=== PATIENT | male | born 1975 | race Caucasian/White ===

== ENCOUNTER 2016-08-26 10:45 | Emergency (ER) | payer MEDICAID, OTHER ==
[2016-08-26 10:52] VITALS: BP 146/77
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
[2016-08-26 12:37] LABS: ALT 14 U/L (7-52); Albumin 4.1 g/dL (3.2-5.2); Alkaline Phosphatase 59 U/L (34-104); Amylase 61 U/L (29-103); BUN/Creatinine Ratio 12.6 (8-20); Blood Urea Nitrogen 14 mg/dL (6-24); C Reactive Protein < 1.00 mg/L (< 5.00); CO2 Carbon Dioxide 23 mmol/L (22-32); Calcium 9.3 mg/dL (8.6-10.3); Chloride 103 mmol/L (101-111); EGFR Non-African American 72.3 (>60); Globulin 2.9 g/dL (2-4); Glucose 95 mg/dL (70-100); Lipase 55 U/L (11.0-82.0); Sodium 134 mmol/L (133-145)
[2016-08-26 12:50] LABS: AST 19 U/L (13-39); Anion Gap 8 mmol/L (2-11); Potassium 4.5 mmol/L (3.5-5.0)
[2016-08-26 13:40] LABS: Hematocrit 46 % (42-52); Hemoglobin 15.4 g/dl (14.0-18.0); Mean Corpuscular HGB Conc 33 g/dl (31-36); Mean Corpuscular Hemoglobin 30 pg (27-31); Mean Corpuscular Volume 90 fL (80-94); Mean Platelet Volume 8 um3 (7.4-10.4); Red Blood Count 5.15 10^6/ul (4.0-5.4); Red Cell Distribution Width 14 % (10.5-15); White Blood Count 7.7 10^3/ul (3.5-10.8)
--- NOTE | 2016-08-29 07:23 | PN ---
Progress Note - Progress Note Note: Patient stool culture did not grow any organisms. No further action needed.
== END 2016-08-26 14:12 | disposition home or self-care (01) ==
LOC: ED 10:45
DX: K52.9 Noninfective gastroenteritis and colitis, unspecified (principal); Z88.0 Allergy status to penicillin
CPT/HCPCS: 36415; 80053; 82150; 83605; 83630; 83690; 83735; 85025; 86140; 87045; 87046; 87077; 87899; 99281

== ENCOUNTER 2017-01-05 12:32 | Emergency (ER) | payer OTHER ==
[2017-01-05 14:43] VITALS: BP 117/81
--- NOTE | 2017-01-05 14:46 | RAD ---
HISTORY: Tender over bilateral shins, crush injury COMPARISONS: None VIEWS: 4, of the right foreleg and of the left foreleg FINDINGS: Right: BONE DENSITY: Normal. BONES: There is no displaced fracture. There is no appreciable erosion or periosteal reaction. JOINTS: There is no arthropathy. ALIGNMENT: There is no dislocation. The alignment is anatomic. SOFT TISSUES: Unremarkable. Left: BONE DENSITY: Normal. BONES: There is no displaced fracture. There is no appreciable erosion or periosteal reaction. JOINTS: There is no arthropathy. ALIGNMENT: There is no dislocation. The alignment is anatomic. SOFT TISSUES: Unremarkable. OTHER FINDINGS: None. IMPRESSION: NO ACUTE OSSEOUS INJURY BILATERALLY. IF SYMPTOMS PERSIST, RECOMMEND REPEAT IMAGING.
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
== END 2017-01-05 15:31 | disposition home or self-care (01) ==
LOC: UCEAST 12:32
DX: S80.12XA Contusion of left lower leg, initial encounter (principal); S80.11XA Contusion of right lower leg, initial encounter; S80.812A Abrasion, left lower leg, initial encounter; S80.811A Abrasion, right lower leg, initial encounter; W22.8XXA Striking against or struck by other objects, initial encounter; Y93.H9 Activity, other involving exterior property and land maintenance, building and construction; Y92.9 Unspecified place or not applicable; R03.0 Elevated blood-pressure reading, without diagnosis of hypertension; R73.03 Prediabetes; Z90.49 Acquired absence of other specified parts of digestive tract; Z88.0 Allergy status to penicillin; Z88.8 Allergy status to other drugs, medicaments and biological substances; F17.210 Nicotine dependence, cigarettes, uncomplicated
CPT/HCPCS: 99213; G0463

== ENCOUNTER 2017-09-09 19:07 | Emergency (ER) | payer SELFPAY ==
[2017-09-09] MEDS ORDERED: Ondansetron INJ* 2 MG/ML VIAL IV ONE (19:15)
[2017-09-09] MEDS ORDERED: Morphine VIAL* 4 MG/ML VIAL (1 ml vial) IV ONE (19:15)
[2017-09-09 20:08] LABS: ABS Basophils 0 10^3/ul (0-0.2); ABS Eosinophils 0 10^3/ul (0-0.6); ABS Lymphocytes 1.8 10^3/ul (1.0-4.8); ABS Monocytes 0.8 10^3/ul (0-0.8); ABS Neutrophils 8.7 10^3/ul (1.5-7.7); ABS Nucleated RBC 0 10^3/ul; Eosinophil % 0.2 % (0-6); Hematocrit 49 % (42-52); Hemoglobin 16.4 g/dl (14.0-18.0); Lymphocyte % 16.1 % (25-47); Mean Corpuscular HGB Conc 34 g/dl (31-36); Mean Corpuscular Hemoglobin 30 pg (27-31); Mean Corpuscular Volume 90 fL (80-94); Mean Platelet Volume 7.6 um3 (7.4-10.4); Nucleated Red Blood Cells % 0.1; Platelet Count 304 10^3/ul (150-450); Red Blood Count 5.39 10^6/ul (4.0-5.4); Red Cell Distribution Width 14 % (10.5-15); White Blood Count 11.4 10^3/ul (3.5-10.8)
[2017-09-09 20:27] LABS: EGFR Non-African American 57.9 (>60)
--- NOTE | 2017-09-09 21:10 | RAD ---
INDICATION: RIGHT flank pain. History of pancreatitis. Post appendectomy, cholecystectomy, hernia repair. COMPARISON: April 27, 2014 CT TECHNIQUE: Multidetector CT images were obtained from the lung bases to the ischial tuberosities. Evaluation of the viscera is limited without IV contrast. Multiplanar reformation. REPORT: Unremarkable visualized inferior thorax. Epigastric surgical clips. Post cholecystectomy. Negative for biliary dilatation. No CT abnormality of the unenhanced liver. Unremarkable unenhanced pancreas. Negative for pancreatic duct dilatation. Unremarkable spleen. Probable previous Yessy fundoplication. No acute CT abnormality of the upper GI or small bowel. Post appendectomy. Mild diverticulosis of the sigmoid colon without findings of acute inflammation. Negative for ascites, free air. Small fat-containing probable indirect LEFT inguinal hernia without inflammatory change. Normal adrenal glands. Negative for urolithiasis or hydronephrosis. No focal renal lesions or abnormality of the nondilated ureters or largely decompressed urinary bladder. Symmetric seminal vesicles. Negative for lymphadenopathy. Normal diameter abdominal aorta and iliac arteries. Physiologic distention of the IVC. Negative for suspicious osseous lesions. IMPRESSION: 1. Probable postsurgical change of Yessy fundoplication. No recurrent hiatal hernia evident. 2. Post appendectomy. 3. Mild colonic diverticulosis at the sigmoid colon without evidence for acute diverticulitis. 4. Negative for urolithiasis or hydronephrosis.
[2017-09-09] MEDS ORDERED: Al Hydrox/Mg Hydrox/Simet LIQ* 30 ML UDC PO ONE (21:22)
[2017-09-09] MEDS ORDERED: Hyoscyamine TAB* 0.125 MG PO ONE (21:22)
[2017-09-09] MEDS ORDERED: Famotidine TAB* 20 MG PO ONE (21:22)
[2017-09-09] MEDS ORDERED: Lidocaine 2% VISCOUS* 15 ML UDC PO ONE (21:31)
[2017-09-09] MEDS ORDERED: Lidocaine 2% VISCOUS* 15 ML UDC ONE (21:32)
[2017-09-09 21:40] VITALS: BP 141/92
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
== END 2017-09-09 21:40 | disposition home or self-care (01) ==
LOC: ED 19:07
DX: K29.70 Gastritis, unspecified, without bleeding (principal); R10.9 Unspecified abdominal pain; G89.29 Other chronic pain
CPT/HCPCS: 36415; 74176; 80053; 80320; 83605; 83690; 85025; 86140; 96374; 99283; A9270-GY; G0480; J2270; J2405

== ENCOUNTER 2017-10-10 07:48 | Emergency (ER) | payer OTHER ==
[2017-10-10] MEDS ORDERED: Ondansetron INJ* 2 MG/ML VIAL IV ONE (09:06)
[2017-10-10] MEDS ORDERED: Morphine VIAL* 4 MG/ML VIAL (1 ml vial) IV ONE (09:06)
[2017-10-10 09:56] LABS: ABS Basophils 0 10^3/ul (0-0.2); ABS Eosinophils 0 10^3/ul (0-0.6); ABS Monocytes 0.5 10^3/ul (0-0.8); ABS Neutrophils 5.9 10^3/ul (1.5-7.7); ABS Nucleated RBC 0 10^3/ul; Eosinophil % 0.2 % (0-6); Hematocrit 48 % (42-52); Lymphocyte % 13.1 % (25-47); Mean Corpuscular HGB Conc 34 g/dl (31-36); Mean Corpuscular Hemoglobin 31 pg (27-31); Mean Corpuscular Volume 91 fL (80-94); Mean Platelet Volume 7.9 um3 (7.4-10.4); Nucleated Red Blood Cells % 0; Platelet Count 304 10^3/ul (150-450); Red Blood Count 5.24 10^6/ul (4.0-5.4); Red Cell Distribution Width 15 % (10.5-15); White Blood Count 7.4 10^3/ul (3.5-10.8)
[2017-10-10 10:12] LABS: INR 0.92 (0.77-1.02)
[2017-10-10 10:20] LABS: EGFR Non-African American 78.5 (>60)
[2017-10-10] MEDS ORDERED: Iodixanol* (CONTRAST) 320 MG/ML 100 ML SDV IV ONE (10:24)
[2017-10-10] MEDS ORDERED: HYDROmorphone INJ* 2 MG/ML CARPUJECT SYRINGE IV SLOW PU ONE (11:22)
[2017-10-10] MEDS ORDERED: Metoclopramide IV* 5 MG/ML 2 ML VIAL IV ONE (11:23)
[2017-10-10 13:49] VITALS: BP 000/00
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
== END 2017-10-10 13:46 | disposition left against medical advice (07) ==
LOC: ED 07:48
DX: R10.9 Unspecified abdominal pain (principal); Z53.21 Procedure and treatment not carried out due to patient leaving prior to being seen by health care provider; F17.200 Nicotine dependence, unspecified, uncomplicated; Z88.0 Allergy status to penicillin; Z88.8 Allergy status to other drugs, medicaments and biological substances
CPT/HCPCS: 36415; 80053; 83605; 83690; 84484; 85025; 85610; 85730; 93005; 96374; 96375; 99283; J1170; J2270; J2765

== ENCOUNTER 2018-04-23 07:05 | Emergency (ER) | payer OTHER ==
[2018-04-23] MEDS ORDERED: LORazepam INJ* 2 MG/ML 1 ML VIAL ONE (07:18)
[2018-04-23] MEDS ORDERED: NS 0.9% 1000 ML* 1,000 ML IV ONE (07:20)
[2018-04-23] MEDS ORDERED: LORazepam INJ* 2 MG/ML 1 ML VIAL IV PUSH ONE (07:21)
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
[2018-04-23 07:30] LABS: ABS Basophils 0 10^3/ul (0-0.2); ABS Eosinophils 0 10^3/ul (0-0.6); ABS Lymphocytes 0.6 10^3/ul (1.0-4.8); ABS Monocytes 0.3 10^3/ul (0-0.8); ABS Neutrophils 8.3 10^3/ul (1.5-7.7); ABS Nucleated RBC 0 10^3/ul; Eosinophil % 0 %; Hematocrit 51 % (42-52); Hemoglobin 17.2 g/dl (14.0-18.0); Lymphocyte % 6.9 %; Mean Corpuscular HGB Conc 33 g/dl (31-36); Mean Corpuscular Hemoglobin 30 pg (27-31); Mean Corpuscular Volume 91 fL (80-94); Mean Platelet Volume 7.6 fL (7.4-10.4); Nucleated Red Blood Cells % 0; Platelet Count 362 10^3/ul (150-450); Red Blood Count 5.67 10^6/ul (4.00-5.40); Red Cell Distribution Width 15 % (10.5-15); White Blood Count 9.2 10^3/ul (3.5-10.8)
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
[2018-04-23 07:48] LABS: EGFR Non-African American 54.8 (>60)
[2018-04-23] MEDS ORDERED: Ziprasidone IM INJ* 20 MG/ML VIAL IM ONE (08:08)
[2018-04-23] MEDS ORDERED: Iodixanol* (CONTRAST) 320 MG/ML 100 ML SDV IV ONE (08:39)
[2018-04-23] MEDS ORDERED: hydrOXYzine HCL TAB* 50 MG PO ONE (11:38)
[2018-04-23 11:58] VITALS: BP 133/79
== END 2018-04-23 11:57 | disposition home or self-care (01) ==
LOC: ED 07:05
DX: R10.9 Unspecified abdominal pain (principal); G89.29 Other chronic pain; R07.9 Chest pain, unspecified; R11.0 Nausea; Z88.0 Allergy status to penicillin; Z79.01 Long term (current) use of anticoagulants; Z86.718 Personal history of other venous thrombosis and embolism; R06.02 Shortness of breath; F17.210 Nicotine dependence, cigarettes, uncomplicated
CPT/HCPCS: 36415; 74177; 80053; 82150; 82550; 83605; 83690; 83735; 83880; 84484; 85025; 86140; 93005; 96372; 96374; 96376; 99282; J2060; Q9967

== ENCOUNTER → 2019-07-02 14:18 | Day surgery (SDC) | payer OTHER ==
--- NOTE | 2019-07-02 09:17 | HP ---
PREOPERATIVE HISTORY AND PHYSICAL: DATE OF ADMISSION/SURGERY: 07/02/19 DATE OF OFFICE VISIT: 07/01/19 ATTENDING SURGEON: Dr. Liu Combs.* (DICTATED BY ELENA POE) PROCEDURE: Right hand fourth and fifth carpometacarpal fracture dislocations, closed reduction versus open reduction and percutaneous pinning. CHIEF COMPLAINT: Right hand. HISTORY OF PRESENT ILLNESS: Mr. Ridley is a 44-year-old male with a history of right hand injury on 06/05/19 when he fell downstairs and jammed his right hand. He had x-rays that showed fracture of the base of the fourth and fifth metacarpals and CT scan showed fourth and fifth metacarpal fracture dislocations. He has failed conservative measures and therefore agreed to undergo a right hand fourth and fifth carpometacarpal fracture dislocation closed reduction versus open reduction and percutaneous pinning with Dr. Combs on 07/02/19. PAST MEDICAL HISTORY: NV, osteoarthritis, GERD, kidney disease, anxiety, history of drug abuse and alcohol addiction, chronic pancreatitis, history of MRSA, and history of DVT/PE approximately 8 years ago; he had his first blood clot with PE after an injury to his right arm and his second one was after a left leg injury. PAST SURGICAL HISTORY: Hiatal hernia repair, appendectomy, cholecystectomy. CURRENT MEDICATIONS: 1. Suboxone. 2. Lorazepam 1 mg as needed. ALLERGIES: PROZAC, PENICILLIN, COMPAZINE, REGLAN, EFFEXOR, REMERON, and RISPERDAL. FAMILY HISTORY: Positive for diabetes, heart disease, hypertension, stroke, and pancreatic cancer. Denies family history of DVT or PE. SOCIAL HISTORY: He is employed in construction, a current smoker of approximately a pack per day. He also smokes marijuana. He denies alcohol use over the past 4 years. REVIEW OF SYSTEMS: A 14-point review of systems was reviewed with the patient and positive for the current complaint, otherwise negative. Positive for a history of DVT and PE. Denies fever, chills, chest pain, shortness of breath, or history of bleeding disorder. Denies hepatitis C or HIV. PHYSICAL EXAMINATION GENERAL: A 44-year-old, well-developed, well-nourished male in no acute distress. VITAL SIGNS: Height 66.5, weight 155, pulse 74, blood pressure 136/78, respiratory rate 12, temperature 97.7, BMI 24.6. HEENT: Normocephalic, atraumatic. PERRL. Throat clear. NECK: Supple. PULMONARY: Lungs are clear to auscultation bilaterally. No wheezing, rhonchi, or rales. CARDIO: Regular rate and rhythm. S1 and S2. No murmurs, gallops, or rubs. No edema. ABDOMEN: Positive bowel sounds. Soft, nontender. NEURO: Alert and oriented x3. Cranial nerves grossly intact. MUSCULOSKELETAL: Mild swelling of the upper extremity. He has a splint that is intact. He is able to flex and extend his DIPs of all of his joints. Sensation intact to the light touch distally. Brisk cap refill. DIAGNOSTIC STUDIES: X-rays and CT revealed fracture dislocations of the fourth and fifth metacarpal bases. ASSESSMENT: Right fourth and fifth metacarpal fracture dislocation. PLAN: The patient is scheduled to undergo a right hand fourth and fifth carpometacarpal fracture dislocation closed reduction versus open reduction and percutaneous pinning with Dr. Combs on 07/02/19. He has been cleared by Cardiology. Dr. Combs has discussed postoperative pain management with the doctor who prescribes the Suboxone. Follow up in 7 to 10 days postop. See additional note dictated by Dr. Combs in preparation for this patient's operation tomorrow. ELENA POE [id number]/[facility] #: [id number] [facility]
[~2019-07-02 14:18] MED LIST: Buffered Lidocaine 1% SYRIN* 1 ML/SYRINGE INTRADERM ONE; Clindamycin 900 MG/D5W BAG(*) 900 MG/50 ML BAG IVPB ONE; Dexamethasone TAB* 4 MG ONE; Dexamethasone TAB* 4 MG PO ONE; DiMENhydriNATE IV* 50 MG/ML VIAL IV PUSH PRN; Famotidine IV* 10 MG/ML 2 ML (20 mg) IV ONE; Famotidine IV* 10 MG/ML 2 ML (20 mg) ONE; Lactated Ringers 1000 ML Bag* 1,000 ML IV SCH; Naloxone* 0.4 MG/ML 1 ML VIAL IV PRN; Ondansetron ODT TAB* 4 MG ONE; Ondansetron ODT TAB* 4 MG PO ONE
[2019-07-02 15:20] VITALS: BP 108/81
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
--- NOTE | 2019-07-02 17:02 | PN ---
Progress Note - Progress Note Date of Service: 07/02/19 SOAP: Subjective: [] Objective: [] Assessment: [] Plan: []
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
== END | disposition home or self-care (01) ==
LOC: OR 14:18
PROVIDERS: ATTEND Orthopaedic Surgery
DX: S62.314A Displaced fracture of base of fourth metacarpal bone, right hand, initial encounter for closed fracture (principal); S62.316A Displaced fracture of base of fifth metacarpal bone, right hand, initial encounter for closed fracture; W10.9XXA Fall (on) (from) unspecified stairs and steps, initial encounter; Y92.9 Unspecified place or not applicable; Z53.8 Procedure and treatment not carried out for other reasons; F19.21 Other psychoactive substance dependence, in remission; F10.11 Alcohol abuse, in remission; I25.2 Old myocardial infarction; M19.90 Unspecified osteoarthritis, unspecified site; F41.9 Anxiety disorder, unspecified; F17.210 Nicotine dependence, cigarettes, uncomplicated
CPT/HCPCS: A9270-GY; J8540

== ENCOUNTER 2022-05-30 23:55 | Inpatient (IN) ==
[2022-05-31] MEDS ORDERED: Lactated Ringers 1000 ml BAG 1,000 ML IV ONE ×3 (00:14→03:24)
[2022-05-31 01:47] LABS: Hematocrit 46 % (42-52); Hemoglobin 15.6 g/dL (14.0-18.0); Mean Corpuscular HGB Conc 34 g/dL (31-36); Mean Corpuscular Hemoglobin 30 pg (27-31); Mean Corpuscular Volume 88 fL (80-94); Mean Platelet Volume 7.7 fL (7.4-10.4); Platelet Count 258 10^3/uL (150-450); Red Blood Count 5.23 10^6 /uL (4.18-5.48); Red Cell Distribution Width 14 % (10-15); White Blood Count 12.5 10^3/uL (3.5-10.8)
[2022-05-31 02:10] LABS: ABS Lymphocytes 0.7 10^3/ul (1.0-4.8); ABS Monocytes 1.7 10^3/ul (0-0.8); ABS Neutrophils 10.1 10^3/ul (1.5-7.7); ALT 360 U/L (7-52); AST 799 U/L (13-39); Albumin 4.5 g/dL (3.2-5.2); Alkaline Phosphatase 75 U/L (35-149); Anion Gap 12 mmol/L (2-11); Blood Urea Nitrogen 123 mg/dL (6-24); CO2 Carbon Dioxide 27 mmol/L (22-32); Calcium 8.1 mg/dL (8.6-10.3); Chloride 98 mmol/L (101-111); Creatinine, Serum 3.22 mg/dL (0.67-1.17); Globulin 2.3 g/dL (2-4); Glucose 127 mg/dL (70-100); Lymphocyte % 5.3 %; Potassium 3.9 mmol/L (3.5-5.0); Sodium 137 mmol/L (135-145); Total Protein 6.8 g/dL (6.4-8.9); eGFR CKD-EPI 22.7 (>60)
[2022-05-31 03:10] LABS: Creatine Kinase 42542 U/L (10-223)
[2022-05-31 04:35] LABS: Alcohol, S < 13 mg/dL (<13)
[2022-05-31] MEDS ORDERED: Enoxaparin 40 MG/0.4 ML SYR SUBCUT SCH (05:00)
[2022-05-31] MEDS ORDERED: Thiamine 100 MG/ML 2 ml VIAL (200 mg) IM ONE (05:13)
[2022-05-31 05:28] LABS: Urine Appearance Cloudy; Urine Bilirubin Negative (Negative); Urine Blood 3+ (Negative); Urine Color Yellow; Urine Glucose Negative (Negative); Urine Ketones Negative (Negative); Urine Nitrite Negative (Negative); Urine Protein 2+(100 mg/dL) (Negative); Urine Specific Gravity 1.016 (1.002-1.030); Urine Urobilinogen Negative (Negative)
[2022-05-31 05:30] LABS: Urine Bacteria 1+ (Absent); Urine Red Blood Cell Trace(0-2/hpf) (Absent); Urine White Blood Cell Trace(0-5/hpf) (Absent)
[2022-05-31 05:45] LABS: Urine Benzodiazepine Screen None Detected (None Detect); Urine Cannabinoids Screen None Detected (None Detect); Urine Opiates Screen None Detected (None Detect)
[2022-05-31] MEDS ORDERED: diazePAM INJ CARPUJECT 5 MG/ML SYRINGE IV ONE (05:50)
[2022-05-31 06:05] LABS: Hepatitis B Surface Antigen Nonreactive (Nonreactive)
[2022-05-31 06:10] LABS: Hepatitis A Ab IgM Negative (Negative)
[2022-05-31 06:11] LABS: Hepatitis B Core IgM Nonreactive (Nonreactive)
[2022-05-31] MEDS: Multivitamins/Minerals TAB PO SCH (06:24)
[2022-05-31 06:41] LABS: Albumin 3.9 g/dL (3.2-5.2); Albumin/Globulin Ratio 1.6 (1-3); Creatinine, Serum 2.39 mg/dL (0.67-1.17); Globulin 2.4 g/dL (2-4); Potassium 3.9 mmol/L (3.5-5.0); Total Bilirubin 1.2 mg/dL (0.2-1.0); Total Protein 6.3 g/dL (6.4-8.9); eGFR CKD-EPI 32.4 (>60)
[2022-05-31 07:28] LABS: Hepatitis C Antibody Reactive (Negative)
[2022-05-31 11:00] LABS: Direct Bilirubin 0.2 mg/dL (0.03-0.18)
[2022-05-31] MEDS: Lactated Ringers 1000 ml BAG 1,000 ML IV SCH ×2 (15:15→20:42)
[2022-05-31 18:26] LABS: Albumin 3.5 g/dL (3.2-5.2); Albumin/Globulin Ratio 1.6 (1-3); Creatinine, Serum 1.44 mg/dL (0.67-1.17); Globulin 2.2 g/dL (2-4); Potassium 3.6 mmol/L (3.5-5.0); Total Bilirubin 0.9 mg/dL (0.2-1.0); Total Protein 5.7 g/dL (6.4-8.9); eGFR CKD-EPI 59.6 (>60)
[2022-06-01] MEDS: Lactated Ringers 1000 ml BAG 1,000 ML IV SCH ×4 (01:50→23:16)
[2022-06-01] MEDS: Multivitamins/Minerals TAB PO SCH (04:52)
[2022-06-01 06:35] LABS: ABS Lymphocytes 1.3 10^3/ul (1.0-4.8); ABS Monocytes 0.9 10^3/ul (0-0.8); ABS Neutrophils 6.8 10^3/ul (1.5-7.7); Eosinophil % 0.5 %; Hematocrit 39 % (42-52); Hemoglobin 13.2 g/dL (14.0-18.0); Lymphocyte % 14.8 %; Mean Corpuscular HGB Conc 34 g/dL (31-36); Mean Corpuscular Hemoglobin 31 pg (27-31); Mean Corpuscular Volume 90 fL (80-94); Platelet Count 200 10^3/uL (150-450); Red Blood Count 4.28 10^6 /uL (4.18-5.48); Red Cell Distribution Width 14 % (10-15); White Blood Count 9.1 10^3/uL (3.5-10.8)
[2022-06-01 07:11] LABS: Albumin 3.2 g/dL (3.2-5.2); Albumin/Globulin Ratio 1.7 (1-3); Calcium 7.8 mg/dL (8.6-10.3); Creatinine, Serum 1.1 mg/dL (0.67-1.17); Globulin 1.9 g/dL (2-4); Magnesium 2.6 mg/dL (1.9-2.7); Phosphorus 1.8 mg/dL (2.5-5.0); Potassium 3.8 mmol/L (3.5-5.0); Total Bilirubin 0.6 mg/dL (0.2-1.0); Total Protein 5.1 g/dL (6.4-8.9); eGFR CKD-EPI 82.3 (>60)
[2022-06-01] MEDS ORDERED: Lactated Ringers 1000 ml BAG 1,000 ML IV SCH ×2 (08:47→09:54)
[2022-06-01] MEDS ORDERED: HYDROmorphone 0.5 MG/0.5 ML SYRINGE IV SLOW PU ONE (12:44)
[2022-06-01] MEDS ORDERED: fentaNYL 100 mcg/2 ml 50 MCG/ML VIAL IV SLOW PU ONE (12:59)
[2022-06-01] MEDS: Potassium Acid Phos 500 mg TAB PO SCH ×2 (13:48→20:07)
[2022-06-01] MEDS ORDERED: Vancomycin 1,000 MG in NS 0.9% 250 ml 250 ML IVPB ONE (16:15)
[2022-06-01] MEDS ORDERED: Vancomycin per Pharmacy 1 EA NOTE FOLLOW UP PRN (16:32)
[2022-06-01] MEDS ORDERED: Vancomycin 1,500 MG in NS 0.9% 250 ml 250 ML IVPB ONE (17:00)
[2022-06-02] MEDS ORDERED: fentaNYL 100 mcg/2 ml 50 MCG/ML VIAL IV SLOW PU ONE (02:51)
[2022-06-02] MEDS: Ondansetron 4 mg VIAL 2 MG/ML 2 ml VIAL IV PRN ×2 (03:36→18:32)
[2022-06-02] MEDS: Vancomycin 1,250 MG in NS 0.9% 250 ml 250 ML IVPB SCH ×2 (05:55→17:16)
[2022-06-02] MEDS: Multivitamins/Minerals TAB PO SCH (05:56)
[2022-06-02 06:40] LABS: ABS Eosinophils 0.2 10^3/ul (0-0.6); ABS Lymphocytes 1.3 10^3/ul (1.0-4.8); ABS Neutrophils 8.9 10^3/ul (1.5-7.7); Eosinophil % 1.4 %; Hematocrit 39 % (42-52); Lymphocyte % 11.9 %; Mean Corpuscular HGB Conc 34 g/dL (31-36); Mean Corpuscular Hemoglobin 31 pg (27-31); Mean Corpuscular Volume 91 fL (80-94); Nucleated Red Blood Cells % 0.1; Platelet Count 176 10^3/uL (150-450); Red Blood Count 4.25 10^6 /uL (4.18-5.48); Red Cell Distribution Width 14 % (10-15); White Blood Count 11.4 10^3/uL (3.5-10.8)
[2022-06-02 07:22] LABS: Albumin 3.2 g/dL (3.2-5.2); CO2 Carbon Dioxide 29 mmol/L (22-32); Calcium 8.7 mg/dL (8.6-10.3); Chloride 106 mmol/L (101-111); Magnesium 1.8 mg/dL (1.9-2.7); Sodium 139 mmol/L (135-145)
[2022-06-02 07:29] LABS: ALT 192 U/L (7-52); Albumin/Globulin Ratio 1.5 (1-3); Alkaline Phosphatase 73 U/L (35-149); Blood Urea Nitrogen 14 mg/dL (6-24); Creatinine, Serum 0.82 mg/dL (0.67-1.17); Globulin 2.1 g/dL (2-4); Glucose 93 mg/dL (70-100); Total Protein 5.3 g/dL (6.4-8.9); eGFR CKD-EPI 107.7 (>60)
[2022-06-02 07:36] LABS: Anion Gap 4 mmol/L (2-11)
[2022-06-02 08:01] LABS: Creatine Kinase 3258 U/L (10-223)
[2022-06-02] MEDS ORDERED: Furosemide 40 mg/4 ml IV VIAL IV ONE (08:18)
[2022-06-02] MEDS ORDERED: Lidocaine 1% MPF 5 ML VIAL INJ ONE (08:47)
[2022-06-02] MEDS: Potassium Acid Phos 500 mg TAB PO SCH ×3 (09:42→20:37)
[2022-06-03] MEDS: Vancomycin 1,250 MG in NS 0.9% 250 ml 250 ML IVPB SCH ×3 (04:19→22:39)
[2022-06-03] MEDS ORDERED: Vancomycin Trough Check NOTE FOLLOW UP ONE (04:30)
[2022-06-03] MEDS: Multivitamins/Minerals TAB PO SCH (06:10)
[2022-06-03 08:49] LABS: Hematocrit 43 % (42-52); Hemoglobin 14.1 g/dL (14.0-18.0); Mean Corpuscular HGB Conc 33 g/dL (31-36); Mean Corpuscular Hemoglobin 29 pg (27-31); Mean Corpuscular Volume 90 fL (80-94); Red Cell Distribution Width 13 % (10-15); White Blood Count 13.1 10^3/uL (3.5-10.8)
[2022-06-03] MEDS ORDERED: Magnesium Sulfate 2 gm BAG 2 GM/50 ML BAG IVPB ONE (09:07)
[2022-06-03 09:18] LABS: ALT 154 U/L (7-52); Albumin 3.4 g/dL (3.2-5.2); Albumin/Globulin Ratio 1.4 (1-3); Alkaline Phosphatase 74 U/L (35-149); Blood Urea Nitrogen 19 mg/dL (6-24); CO2 Carbon Dioxide 34 mmol/L (22-32); Calcium 8.9 mg/dL (8.6-10.3); Chloride 99 mmol/L (101-111); Creatine Kinase 987 U/L (10-223); Creatinine, Serum 0.92 mg/dL (0.67-1.17); Globulin 2.5 g/dL (2-4); Glucose 105 mg/dL (70-100); Magnesium 1.9 mg/dL (1.9-2.7); Sodium 138 mmol/L (135-145); Total Protein 5.9 g/dL (6.4-8.9)
[2022-06-03 09:19] LABS: ABS Eosinophils 0.4 10^3/ul (0-0.6); ABS Lymphocytes 1.4 10^3/ul (1.0-4.8); ABS Monocytes 1.2 10^3/ul (0-0.8); ABS Neutrophils 10.1 10^3/ul (1.5-7.7); Eosinophil % 2.8 %; Lymphocyte % 10.9 %; Mean Platelet Volume 8.1 fL (7.4-10.4); Platelet Count 220 10^3/uL (150-450)
[2022-06-03 09:20] LABS: Anion Gap 5 mmol/L (2-11)
[2022-06-03] MEDS ORDERED: Furosemide 40 mg/4 ml IV VIAL IV SLOW PU ONE (09:23)
[2022-06-03] MEDS: Ondansetron 4 mg VIAL 2 MG/ML 2 ml VIAL IV PRN ×2 (10:49→17:13)
[2022-06-03] MEDS: Potassium Acid Phos 500 mg TAB PO SCH ×3 (10:51→22:10)
[2022-06-03 11:50] LABS: HIV 4th Generation Nonreactive (Nonreactive)
[2022-06-04] MEDS: Multivitamins/Minerals TAB PO SCH (05:32)
[2022-06-04 07:19] LABS: Potassium, Whole Blood 3.8 mmol/L (3.4-4.5)
[2022-06-04 07:27] LABS: ABS Eosinophils 0.4 10^3/ul (0-0.6); ABS Lymphocytes 1.2 10^3/ul (1.0-4.8); ABS Monocytes 1.2 10^3/ul (0-0.8); ABS Neutrophils 9.5 10^3/ul (1.5-7.7); Eosinophil % 3.1 %; Hematocrit 44 % (42-52); Hemoglobin 14.2 g/dL (14.0-18.0); Lymphocyte % 9.7 %; Mean Corpuscular HGB Conc 33 g/dL (31-36); Mean Corpuscular Hemoglobin 30 pg (27-31); Mean Corpuscular Volume 91 fL (80-94); Mean Platelet Volume 8.1 fL (7.4-10.4); Platelet Count 248 10^3/uL (150-450); Red Blood Count 4.77 10^6 /uL (4.18-5.48); Red Cell Distribution Width 14 % (10-15); White Blood Count 12.3 10^3/uL (3.5-10.8)
[2022-06-04 07:34] LABS: Albumin 3.4 g/dL (3.2-5.2); Albumin/Globulin Ratio 1.4 (1-3); Calcium 8.7 mg/dL (8.6-10.3); Creatinine, Serum 0.95 mg/dL (0.67-1.17); Globulin 2.4 g/dL (2-4); Potassium 3.9 mmol/L (3.5-5.0); Total Bilirubin 0.4 mg/dL (0.2-1.0); Total Protein 5.8 g/dL (6.4-8.9); eGFR CKD-EPI 98.1 (>60)
[2022-06-04] MEDS: Potassium Acid Phos 500 mg TAB PO SCH ×3 (08:05→21:12)
[2022-06-04] MEDS ORDERED: Vancomycin Trough Check NOTE FOLLOW UP ONE (09:30)
[2022-06-04] MEDS: Vancomycin 1,250 MG in NS 0.9% 250 ml 250 ML IVPB SCH ×2 (10:53→21:11)
[2022-06-04] MEDS: Ondansetron 4 mg VIAL 2 MG/ML 2 ml VIAL IV PRN ×2 (10:56→17:19)
[2022-06-04] MEDS: Enoxaparin 40 MG/0.4 ML SYR SUBCUT SCH (16:08)
[2022-06-05] MEDS: Multivitamins/Minerals TAB PO SCH (04:15)
[2022-06-05] MEDS: Ondansetron 4 mg VIAL 2 MG/ML 2 ml VIAL IV PRN (10:05)
[2022-06-05] MEDS: Vancomycin 1,250 MG in NS 0.9% 250 ml 250 ML IVPB SCH ×3 (10:43→23:55)
[2022-06-05] MEDS ORDERED: fentaNYL 100 mcg/2 ml 50 MCG/ML VIAL IV SLOW PU ONE (11:12)
[2022-06-05] MEDS: Enoxaparin 40 MG/0.4 ML SYR SUBCUT SCH (16:17)
[2022-06-06] MEDS: Ondansetron 4 mg VIAL 2 MG/ML 2 ml VIAL IV PRN ×3 (00:09→18:38)
[2022-06-06] MEDS: Vancomycin 1,250 MG in NS 0.9% 250 ml 250 ML IVPB SCH ×2 (00:16→12:30)
[2022-06-06] MEDS: Multivitamins/Minerals TAB PO SCH (04:43)
[2022-06-06 05:24] LABS: Hematocrit 39 % (42-52); Hemoglobin 12.5 g/dL (14.0-18.0); Mean Corpuscular HGB Conc 32 g/dL (31-36); Mean Corpuscular Hemoglobin 29 pg (27-31); Mean Corpuscular Volume 90 fL (80-94); Mean Platelet Volume 7.8 fL (7.4-10.4); Platelet Count 294 10^3/uL (150-450); Red Blood Count 4.27 10^6 /uL (4.18-5.48); Red Cell Distribution Width 13 % (10-15); White Blood Count 11.7 10^3/uL (3.5-10.8)
[2022-06-06 05:28] LABS: ABS Eosinophils 0.3 10^3/ul (0-0.6); ABS Lymphocytes 1.4 10^3/ul (1.0-4.8); ABS Monocytes 1.6 10^3/ul (0-0.8); ABS Neutrophils 8.4 10^3/ul (1.5-7.7); Eosinophil % 2.5 %; Lymphocyte % 11.8 %
[2022-06-06 05:44] LABS: Albumin 3.2 g/dL (3.2-5.2); Albumin/Globulin Ratio 1.4 (1-3); Creatinine, Serum 0.85 mg/dL (0.67-1.17); Globulin 2.3 g/dL (2-4); Potassium 4.1 mmol/L (3.5-5.0); Total Bilirubin 0.4 mg/dL (0.2-1.0); Total Protein 5.5 g/dL (6.4-8.9); eGFR CKD-EPI 106.5 (>60)
[2022-06-06] MEDS ORDERED: Enoxaparin 40 MG/0.4 ML SYR SUBCUT SCH ×2 (13:00→16:00)
[2022-06-06] MEDS ORDERED: Propofol 10 MG/ML 20 ML BTL ONE (13:52)
[2022-06-06] MEDS ORDERED: Lidocaine 2% PF 5 ML VIAL ONE (13:52)
[2022-06-06] MEDS ORDERED: Midazolam 2 mg/2 ml VIAL 1 mg/ml 2 ml VIAL (2 mg) ONE (13:52)
[2022-06-06] MEDS ORDERED: fentaNYL 100 mcg/2 ml 50 MCG/ML VIAL ONE (13:52)
[2022-06-06] MEDS ORDERED: Iohexol 350 (CONTRAST) 500 ML MDV IV ONE (14:34)
[2022-06-06 17:24] LABS: C Reactive Protein 96.34 mg/L (<8.01)
[2022-06-07] MEDS: Vancomycin 1,250 MG in NS 0.9% 250 ml 250 ML IVPB SCH (00:50)
[2022-06-07] MEDS: Multivitamins/Minerals TAB PO SCH (05:09)
[2022-06-07 05:41] LABS: ABS Eosinophils 0.3 10^3/ul (0-0.6); ABS Lymphocytes 1.3 10^3/ul (1.0-4.8); ABS Monocytes 1.1 10^3/ul (0-0.8); Eosinophil % 3.1 %; Hematocrit 37 % (42-52); Hemoglobin 12.2 g/dL (14.0-18.0); Lymphocyte % 12.4 %; Mean Corpuscular HGB Conc 33 g/dL (31-36); Mean Corpuscular Hemoglobin 30 pg (27-31); Mean Corpuscular Volume 90 fL (80-94); Mean Platelet Volume 7.4 fL (7.4-10.4); Platelet Count 300 10^3/uL (150-450); Red Cell Distribution Width 14 % (10-15); White Blood Count 10.8 10^3/uL (3.5-10.8)
[2022-06-07 06:45] LABS: Albumin/Globulin Ratio 1.2 (1-3); Calcium 7.9 mg/dL (8.6-10.3); Creatinine, Serum 0.86 mg/dL (0.67-1.17); Globulin 2.5 g/dL (2-4); Potassium 3.9 mmol/L (3.5-5.0); Total Bilirubin 0.4 mg/dL (0.2-1.0); Total Protein 5.5 g/dL (6.4-8.9); eGFR CKD-EPI 106.1 (>60)
[2022-06-07] MEDS ORDERED: Vancomycin Trough Check NOTE FOLLOW UP ONE (11:30)
[2022-06-07] MEDS: Vancomycin 1000 MG in NS 0.9% 250 ML IVPB SCH ×2 (13:11→21:29)
[2022-06-07] MEDS: Ondansetron 4 mg VIAL 2 MG/ML 2 ml VIAL IV PRN (13:38)
[2022-06-07] MEDS: Enoxaparin 40 MG/0.4 ML SYR SUBCUT SCH (16:58)
[2022-06-07] MEDS ORDERED: Acetaminophen IV 1 GM/100ML 1,000 MG/100 ML BAG IV PRN ×2 (20:07→22:47)
[2022-06-07] MEDS ORDERED: Pantoprazole VIAL 40 MG VIAL IV ONE (20:29)
[2022-06-07] MEDS ORDERED: fentaNYL 100 mcg/2 ml 50 MCG/ML VIAL IV SLOW PU ONE (21:02)
[2022-06-07 21:36] LABS: ABS Basophils 0.1 10^3/ul (0-0.2); ABS Eosinophils 0.2 10^3/ul (0-0.6); ABS Lymphocytes 0.5 10^3/ul (1.0-4.8); ABS Monocytes 0.7 10^3/ul (0-0.8); ABS Neutrophils 15.7 10^3/ul (1.5-7.7); Eosinophil % 1.1 %; Hematocrit 36 % (42-52); Hemoglobin 11.7 g/dL (14.0-18.0); Lymphocyte % 2.7 %; Mean Corpuscular HGB Conc 33 g/dL (31-36); Mean Corpuscular Hemoglobin 29 pg (27-31); Mean Corpuscular Volume 90 fL (80-94); Mean Platelet Volume 7.3 fL (7.4-10.4); Platelet Count 281 10^3/uL (150-450); Red Blood Count 3.99 10^6 /uL (4.18-5.48); Red Cell Distribution Width 14 % (10-15); White Blood Count 17.1 10^3/uL (3.5-10.8)
[2022-06-07 22:07] LABS: Urine Appearance Clear; Urine Bilirubin Negative (Negative); Urine Blood Negative (Negative); Urine Color Yellow; Urine Glucose Negative (Negative); Urine Ketones Negative (Negative); Urine Nitrite Negative (Negative); Urine Protein Negative (Negative); Urine Specific Gravity 1.018 (1.002-1.030); Urine Urobilinogen Negative (Negative)
[2022-06-07 22:16] LABS: Albumin 3.1 g/dL (3.2-5.2); Albumin/Globulin Ratio 1.2 (1-3); Calcium 7.8 mg/dL (8.6-10.3); Creatinine, Serum 0.93 mg/dL (0.67-1.17); Globulin 2.5 g/dL (2-4); Potassium 3.9 mmol/L (3.5-5.0); Total Bilirubin 0.4 mg/dL (0.2-1.0); Total Protein 5.6 g/dL (6.4-8.9); eGFR CKD-EPI 100.7 (>60)
[2022-06-07 23:08] LABS: C Reactive Protein 83.02 mg/L (<8.01)
[2022-06-08] MEDS: Vancomycin 1000 MG in NS 0.9% 250 ML IVPB SCH ×3 (04:27→20:37)
[2022-06-08] MEDS: Multivitamins/Minerals TAB PO SCH (06:10)
[2022-06-08 07:59] LABS: ABS Basophils 0.1 10^3/ul (0-0.2); ABS Eosinophils 0.2 10^3/ul (0-0.6); ABS Monocytes 0.9 10^3/ul (0-0.8); ABS Neutrophils 14.1 10^3/ul (1.5-7.7); Eosinophil % 1.3 %; Hematocrit 36 % (42-52); Hemoglobin 11.4 g/dL (14.0-18.0); Lymphocyte % 6.1 %; Mean Corpuscular HGB Conc 32 g/dL (31-36); Mean Corpuscular Hemoglobin 29 pg (27-31); Mean Corpuscular Volume 91 fL (80-94); Mean Platelet Volume 7.2 fL (7.4-10.4); Platelet Count 280 10^3/uL (150-450); Red Blood Count 3.94 10^6 /uL (4.18-5.48); Red Cell Distribution Width 14 % (10-15); White Blood Count 16.2 10^3/uL (3.5-10.8)
[2022-06-08 08:33] LABS: Albumin 2.9 g/dL (3.2-5.2); Albumin/Globulin Ratio 1.3 (1-3); Calcium 7.8 mg/dL (8.6-10.3); Creatinine, Serum 0.84 mg/dL (0.67-1.17); Globulin 2.2 g/dL (2-4); Potassium 3.7 mmol/L (3.5-5.0); Total Bilirubin 0.3 mg/dL (0.2-1.0); Total Protein 5.1 g/dL (6.4-8.9); eGFR CKD-EPI 106.9 (>60)
[2022-06-08] MEDS ORDERED: Lidocaine 1% MPF 5 ML VIAL INJ ONE (10:27)
[2022-06-08] MEDS ORDERED: Vancomycin Trough Check NOTE FOLLOW UP ONE (11:30)
[2022-06-08 12:19] LABS: Creatinine, Serum 0.73 mg/dL (0.67-1.17); Vancomycin Trough 11.9 mcg/mL; eGFR CKD-EPI 111.5 (>60)
[2022-06-08] MEDS: Enoxaparin 40 MG/0.4 ML SYR SUBCUT SCH (17:32)
[2022-06-09] MEDS: Vancomycin 1000 MG in NS 0.9% 250 ML IVPB SCH ×3 (03:27→21:21)
[2022-06-09] MEDS: Multivitamins/Minerals TAB PO SCH (06:05)
[2022-06-09 06:13] LABS: ABS Basophils 0.1 10^3/ul (0-0.2); ABS Eosinophils 0.3 10^3/ul (0-0.6); ABS Lymphocytes 1.5 10^3/ul (1.0-4.8); ABS Monocytes 1.1 10^3/ul (0-0.8); ABS Neutrophils 6.2 10^3/ul (1.5-7.7); Hematocrit 34 % (42-52); Hemoglobin 11.1 g/dL (14.0-18.0); Lymphocyte % 16.8 %; Mean Corpuscular HGB Conc 33 g/dL (31-36); Mean Corpuscular Hemoglobin 29 pg (27-31); Mean Corpuscular Volume 89 fL (80-94); Mean Platelet Volume 7.3 fL (7.4-10.4); Platelet Count 283 10^3/uL (150-450); Red Blood Count 3.79 10^6 /uL (4.18-5.48); Red Cell Distribution Width 14 % (10-15); White Blood Count 9.2 10^3/uL (3.5-10.8)
[2022-06-09 06:53] LABS: Albumin 2.4 g/dL (3.2-5.2); Albumin/Globulin Ratio 1.2 (1-3); Calcium 6.6 mg/dL (8.6-10.3); Creatinine, Serum 0.66 mg/dL (0.67-1.17); Magnesium 1.5 mg/dL (1.9-2.7); Potassium 3.4 mmol/L (3.5-5.0); Total Bilirubin 0.2 mg/dL (0.2-1.0); Total Protein 4.4 g/dL (6.4-8.9)
[2022-06-09] MEDS ORDERED: Magnesium Sulfate IV 3 GM in NS 0.9% 100 ml BAG 100 ML IVPB ONE (07:11)
[2022-06-09] MEDS ORDERED: Potassium Chlor 20 meq TAB.ER PO ONE (07:11)
[2022-06-09 08:47] LABS: C Reactive Protein 79.79 mg/L (<8.01)
[2022-06-09] MEDS: Ondansetron 4 mg VIAL 2 MG/ML 2 ml VIAL IV PRN (14:24)
[2022-06-09] MEDS: Enoxaparin 40 MG/0.4 ML SYR SUBCUT SCH (17:12)
[2022-06-10] MEDS: Multivitamins/Minerals TAB PO SCH (05:40)
[2022-06-10] MEDS ORDERED: Vancomycin Trough Check NOTE FOLLOW UP ONE (06:00)
[2022-06-10] MEDS: Vancomycin 1000 MG in NS 0.9% 250 ML IVPB SCH ×3 (06:21→21:41)
[2022-06-10 06:30] LABS: ABS Basophils 0.1 10^3/ul (0-0.2); ABS Eosinophils 0.3 10^3/ul (0-0.6); ABS Lymphocytes 1.8 10^3/ul (1.0-4.8); ABS Monocytes 0.9 10^3/ul (0-0.8); ABS Neutrophils 5.7 10^3/ul (1.5-7.7); Hematocrit 37 % (42-52); Hemoglobin 12.1 g/dL (14.0-18.0); Lymphocyte % 20.2 %; Mean Corpuscular HGB Conc 33 g/dL (31-36); Mean Corpuscular Hemoglobin 30 pg (27-31); Mean Corpuscular Volume 89 fL (80-94); Mean Platelet Volume 7.5 fL (7.4-10.4); Nucleated Red Blood Cells % 0.1; Platelet Count 354 10^3/uL (150-450); Red Blood Count 4.11 10^6 /uL (4.18-5.48); Red Cell Distribution Width 14 % (10-15); White Blood Count 8.8 10^3/uL (3.5-10.8)
[2022-06-10 06:44] LABS: Albumin 3.1 g/dL (3.2-5.2); Albumin/Globulin Ratio 1.1 (1-3); Calcium 8.1 mg/dL (8.6-10.3); Creatinine, Serum 0.72 mg/dL (0.67-1.17); Globulin 2.7 g/dL (2-4); Magnesium 2.1 mg/dL (1.9-2.7); Potassium 4.1 mmol/L (3.5-5.0); Total Bilirubin 0.2 mg/dL (0.2-1.0); Total Protein 5.8 g/dL (6.4-8.9); Vancomycin Trough 12.3 mcg/mL
[2022-06-10] MEDS: Enoxaparin 40 MG/0.4 ML SYR SUBCUT SCH (17:27)
[2022-06-11] MEDS: Vancomycin 1000 MG in NS 0.9% 250 ML IVPB SCH ×3 (05:30→13:48)
[2022-06-11] MEDS: Multivitamins/Minerals TAB PO SCH (05:36)
[2022-06-11 12:00] VITALS: BP 148/96
== END 2022-06-11 14:50 | disposition home or self-care (01) | DRG 469 ==
LOC: ED 23:55 → SUATTDRO 05-31 04:10 → EDHOLD 05-31 04:10 → MED 05-31 14:32
PROVIDERS: ADMIT Hospitalist; ATTEND Hospitalist
PROC: O.CATEE (2022-06-06 14:15)

== ENCOUNTER 2023-06-20 16:00 | Inpatient (IN) ==
[2023-06-20] MEDS ORDERED: Morphine 4 MG/ML VIAL (1 ml) ONE (17:04)
[2023-06-20] MEDS: Morphine 4 MG/ML VIAL (1 ml) IV ONE (17:07)
[2023-06-20 17:22] LABS: ABS Basophils 0.1 10^3/uL (0.0-0.1); ABS Lymphocytes 1.4 10^3/uL (1.0-4.8); ABS Monocytes 0.7 10^3/uL (0.0-1.1); ABS Neutrophils 8.2 10^3/uL (1.5-7.6); Eosinophil % 0.3 %; Hematocrit 46.4 % (38-53); Hemoglobin 15.4 g/dL (13.2-16.3); Lymphocyte % 13.1 %; Mean Corpuscular Hemoglobin 29.4 pg (27-33); Mean Corpuscular Hgb Conc 33.2 g/dL (31-36); Mean Corpuscular Volume 88.5 fL (80-97); Mean Platelet Volume 7.4 fL (7.5-11.2); Platelet Count 368 10^3/uL (150-450); Red Blood Count 5.25 10^6/uL (4.06-5.63); Red Cell Distribution Width 14.5 % (12-17); White Blood Count 10.3 10^3/uL (3.6-10.2)
[2023-06-20 18:00] LABS: Albumin 4.2 g/dL (3.2-5.2); Albumin/Globulin Ratio 1.1 (1-3); C Reactive Protein 2.61 mg/L (<8.01); Calcium 9.7 mg/dL (8.6-10.3); Globulin 3.7 g/dL (2-4); Potassium 3.7 mmol/L (3.5-5.0); Total Bilirubin 0.4 mg/dL (0.2-1.0); Total Protein 7.9 g/dL (6.4-8.9); eGFR CKD-EPI 91.7 (>60)
[2023-06-20] MEDS: Ondansetron 4 mg VIAL 2 MG/ML 2 ml VIAL IV ONE (18:33)
[2023-06-20] MEDS: HYDROmorphone 1 MG/1 ML SYRINGE IV SLOW PU ONE (18:33)
[2023-06-20] MEDS: Iohexol 300 (CONTRAST) 10 ML SDV IV ONE (20:37)
[2023-06-20 22:06] LABS: Urine Appearance Clear; Urine Bilirubin Negative (Negative); Urine Blood Negative (Negative); Urine Color Yellow; Urine Glucose Negative (Negative); Urine Ketones Negative (Negative); Urine Nitrite Negative (Negative); Urine Protein 1+(30 mg/dL) (Negative); Urine Specific Gravity 1.057 (1.002-1.030); Urine Urobilinogen Negative (Negative)
[2023-06-20 22:09] LABS: Urine Bacteria Absent (Absent); Urine Red Blood Cell Trace(0-2/hpf) (Absent); Urine White Blood Cell Trace(0-5/hpf) (Absent)
[2023-06-20] MEDS: HYDROcodone/ACETAMIN 5/325 mg TAB PO ONE (22:19)
[2023-06-20] MEDS: Al Hydrox/Mg Hydrox/Simet LIQ 30 ML UDC PO ONE (22:19)
[2023-06-20] MEDS ORDERED: Al Hydrox/Mg Hydrox/Simet LIQ 30 ML UDC PO PRN (23:11)
[2023-06-20] MEDS ORDERED: Ondansetron 4 mg VIAL 2 MG/ML 2 ml VIAL IV PRN (23:11)
[2023-06-20 23:32] LABS: Urine Benzodiazepine Screen None Detected (None Detect); Urine Buprenorphine Screen None Detected (None Detect); Urine Cannabinoids Screen None Detected (None Detect); Urine Fentanyl Screen None Detected (None Detect); Urine Hydrocodone Screen Presumptive Positive (None Detect); Urine Opiates Screen Presumptive Positive (None Detect)
[2023-06-20] MEDS ORDERED: HYDROmorphone 1 MG/1 ML SYRINGE IV SLOW PU PRN (23:32)
[2023-06-21] MEDS: HYDROmorphone 1 MG/1 ML SYRINGE IV SLOW PU ONE (00:31)
[2023-06-21] MEDS: Nitroglycerin 0.2 mg/hr PATCH (5 mg) TRANSDERM ONE (00:32)
[2023-06-21] MEDS ORDERED: HYDROmorphone 1 MG/1 ML SYRINGE IV SLOW PU SCH (01:00)
[2023-06-21] MEDS: Enoxaparin 40 MG/0.4 ML SYR SUBCUT SCH (01:55)
[2023-06-21] MEDS: Lactated Ringers 1000 ml BAG 1,000 ML IV SCH (03:00)
[2023-06-21] MEDS: HYDROmorphone 1 MG/1 ML SYRINGE IV SLOW PU PRN ×2 (03:30→19:49)
[2023-06-21 07:36] LABS: INR 1.05 (0.83-1.13)
[2023-06-21 08:02] LABS: Hematocrit 44.3 % (38-53); Hemoglobin 14.8 g/dL (13.2-16.3); Mean Corpuscular Hemoglobin 29.4 pg (27-33); Mean Corpuscular Hgb Conc 33.4 g/dL (31-36); Mean Corpuscular Volume 88.1 fL (80-97); Mean Platelet Volume 7.7 fL (7.5-11.2); Platelet Count 368 10^3/uL (150-450); Red Blood Count 5.03 10^6/uL (4.06-5.63); Red Cell Distribution Width 14.8 % (12-17); White Blood Count 11.5 10^3/uL (3.6-10.2)
[2023-06-21 09:05] LABS: ABS Basophils 0.1 10^3/uL (0.0-0.1); ABS Lymphocytes 2.4 10^3/uL (1.0-4.8); ABS Monocytes 1.7 10^3/uL (0.0-1.1); ABS Neutrophils 7.4 10^3/uL (1.5-7.6); ABS Nucleated RBC 0.01 10^3/ul; Eosinophil % 0.2 %; Lymphocyte % 20.7 %
[2023-06-21 09:13] LABS: Albumin 4.3 g/dL (3.2-5.2); Albumin/Globulin Ratio 1.2 (1-3); Calcium 9.3 mg/dL (8.6-10.3); Creatinine, Serum 1.07 mg/dL (0.67-1.17); Globulin 3.6 g/dL (2-4); Magnesium 2.3 mg/dL (1.9-2.7); Potassium 3.8 mmol/L (3.5-5.0); Total Bilirubin 0.6 mg/dL (0.2-1.0); Total Protein 7.9 g/dL (6.4-8.9); eGFR CKD-EPI 84.5 (>60)
[2023-06-21] MEDS: Pantoprazole VIAL 40 MG VIAL IV SCH (09:48)
[2023-06-21] MEDS: Lactulose 30 ml UDC PO SCH (09:49)
[2023-06-21] MEDS: Polyethylene Glycol 3350 17 GM PACKET PO SCH (09:49)
[2023-06-21] MEDS ORDERED: hydrALAZINE 20 mg/ml 1 ML Vial IV IV SLOW PU PRN (14:56)
[2023-06-21] MEDS: Senna TAB 8.6 mg TAB PO SCH (21:02)
[2023-06-22 08:36] LABS: ABS Basophils 0.1 10^3/uL (0.0-0.1); ABS Eosinophils 0.1 10^3/uL (0.0-0.5); ABS Lymphocytes 1.3 10^3/uL (1.0-4.8); ABS Monocytes 0.7 10^3/uL (0.0-1.1); ABS Neutrophils 4.3 10^3/uL (1.5-7.6); ABS Nucleated RBC 0.01 10^3/ul; Eosinophil % 1.3 %; Hematocrit 41.5 % (38-53); Lymphocyte % 19.6 %; Mean Corpuscular Hemoglobin 29.7 pg (27-33); Mean Corpuscular Hgb Conc 33.8 g/dL (31-36); Mean Corpuscular Volume 87.8 fL (80-97); Mean Platelet Volume 7.5 fL (7.5-11.2); Nucleated Red Blood Cells % 0.1 %/100WBC (0.0-0.8); Platelet Count 299 10^3/uL (150-450); Red Blood Count 4.73 10^6/uL (4.06-5.63); Red Cell Distribution Width 14.3 % (12-17); White Blood Count 6.4 10^3/uL (3.6-10.2)
[2023-06-22 09:04] LABS: Calcium 8.5 mg/dL (8.6-10.3); Creatinine, Serum 0.93 mg/dL (0.67-1.17); Magnesium 2.1 mg/dL (1.9-2.7); Potassium 3.7 mmol/L (3.5-5.0)
[2023-06-22] MEDS ORDERED: HYDROmorphone 1 MG/1 ML SYRINGE IV SLOW PU PRN (10:06)
[2023-06-22 13:02] LABS: ABS Basophils 0.1 10^3/uL (0.0-0.1); ABS Eosinophils 0.1 10^3/uL (0.0-0.5); ABS Lymphocytes 1.4 10^3/uL (1.0-4.8); ABS Monocytes 0.9 10^3/uL (0.0-1.1); ABS Neutrophils 4.6 10^3/uL (1.5-7.6); ABS Nucleated RBC 0.01 10^3/ul; Eosinophil % 1.3 %; Hematocrit 44.8 % (38-53); Hemoglobin 14.8 g/dL (13.2-16.3); Lymphocyte % 19.9 %; Mean Corpuscular Hemoglobin 29.2 pg (27-33); Mean Corpuscular Volume 88.4 fL (80-97); Mean Platelet Volume 7.3 fL (7.5-11.2); Nucleated Red Blood Cells % 0.1 %/100WBC (0.0-0.8); Platelet Count 291 10^3/uL (150-450); Red Blood Count 5.07 10^6/uL (4.06-5.63); Red Cell Distribution Width 14.4 % (12-17)
[2023-06-22] MEDS: HYDROmorphone 1 MG/1 ML SYRINGE IV SLOW PU PRN (13:55)
[2023-06-22 13:56] VITALS: BP 159/93
[2023-06-22] MEDS ORDERED: Lorazepam PYXIS KEY PRN (16:02)
[2023-06-22] MEDS: Haloperidol 5 mg/ml SDV IV/IM 5 MG/ML AMP ONE (16:27)
[2023-06-22] MEDS: Haloperidol 5 mg/ml SDV IV/IM 5 MG/ML AMP IV SLOW PU ONE (16:27)
[2023-06-22] MEDS: LORazepam 2 mg VIAL 1 ml IV PUSH ONE (16:27)
[2023-06-22] MEDS: LORazepam 2 mg VIAL 1 ml ONE (16:27)
== END 2023-06-22 16:14 | disposition left against medical advice (07) | DRG 251 ==
LOC: ED 16:00 → EDHOLD 16:00 → SUATTDRO 23:05 → MEDTELE 06-21 00:17
PROVIDERS: ADMIT Internal Medicine; ATTEND Student in an Organized Health Care Education/Training Program

== ENCOUNTER 2024-04-30 10:51 | Observation (INO) ==
[2024-04-30] MEDS: Lactated Ringers 1000 ml BAG 1,000 ML IV ONE ×2 (11:30→12:17)
[2024-04-30 11:45] LABS: ABS Lymphocytes 1.3 10^3/uL (1.0-4.8); ABS Monocytes 1.3 10^3/uL (0.0-1.1); ABS Neutrophils 8.8 10^3/uL (1.5-7.6); ABS Nucleated RBC 0.05 10^3/ul; Eosinophil % 0.1 %; Hematocrit 55.2 % (38-53); Hemoglobin 19.1 g/dL (13.2-16.3); Lymphocyte % 11.1 %; Mean Corpuscular Hemoglobin 30.7 pg (27-33); Mean Corpuscular Hgb Conc 34.5 g/dL (31-36); Mean Corpuscular Volume 88.9 fL (80-97); Mean Platelet Volume 8.2 fL (7.5-11.2); Nucleated Red Blood Cells % 0.5 %/100WBC (0.0-0.8); Platelet Count 343 10^3/uL (150-450); Red Blood Count 6.21 10^6/uL (4.06-5.63); Red Cell Distribution Width 14.2 % (12-17); White Blood Count 11.4 10^3/uL (3.6-10.2)
[2024-04-30 11:52] LABS: INR 1.05 (0.85-1.14)
[2024-04-30 12:22] LABS: Urine Appearance Clear; Urine Bilirubin Negative (Negative); Urine Blood 1+ (Negative); Urine Color Light-Yellow; Urine Glucose 1+ (>=70 mg/dL) (Negative); Urine Ketones Negative (Negative); Urine Nitrite Negative (Negative); Urine Protein 1+ (>=30 mg/dL) (Negative); Urine Specific Gravity 1.023 (1.002-1.030); Urine Urobilinogen Negative (Negative); Urine pH 5.5 (5.0-8.0)
[2024-04-30 13:02] LABS: Albumin 4.9 g/dL (3.2-5.2); Albumin/Globulin Ratio 1.5 (1-3); Creatinine, Serum 2.28 mg/dL (0.67-1.17); Globulin 3.2 g/dL (2-4); Potassium 4.1 mmol/L (3.5-5.0); Total Bilirubin 1.4 mg/dL (0.2-1.0); Total Protein 8.1 g/dL (6.4-8.9); eGFR CKD-EPI 33.9 (>60)
[2024-04-30 13:03] LABS: High Sensitivity Troponin 1 Hr 15 pg/mL (<20)
[2024-04-30 13:06] LABS: HIV 4th Generation Nonreactive (Nonreactive)
[2024-04-30] MEDS: Iodixanol 320 (CONTRAST) 100 ML SDV IV ONE (13:55)
[2024-04-30 14:21] LABS: Urine Bacteria Absent /HPF (Absent); Urine Red Blood Cell 1+(3-5/hpf) /HPF (0-Trace); Urine Squamous Epithelial Cell Present /HPF (Absent); Urine White Blood Cell Absent /HPF (0-Trace)
[2024-04-30] MEDS ORDERED: Acetaminophen IV 1 GM/100ML 1,000 MG/100 ML BAG IV PRN (14:34)
[2024-04-30] MEDS ORDERED: Ondansetron 4 mg VIAL 2 MG/ML 2 ml VIAL IV PRN (14:34)
[2024-04-30 15:33] LABS: C Reactive Protein 1.71 mg/L (<8.01)
[2024-04-30] MEDS: Lactated Ringers 1000 ml BAG 1,000 ML IV SCH (16:05)
[2024-04-30] MEDS: Pantoprazole VIAL 40 MG VIAL IV SCH (16:09)
[2024-04-30] MEDS: Famotidine IV 10 MG/ML 2 ml VIAL (20 mg) IV SLOW PU ONE (16:16)
[2024-04-30] MEDS: Enoxaparin 40 MG/0.4 ML SYR SUBCUT SCH (16:51)
[2024-04-30] MEDS ORDERED: Morphine 2 MG/ML SYRINGE IV PRN (16:52)
[2024-04-30 19:08] LABS: Osmolality Serum 297 mOsm/kg (275-295)
[2024-05-01] MEDS: LORazepam 2 mg VIAL 1 ml IV PUSH ONE ×2 (04:18→10:22)
[2024-05-01] MEDS: LORazepam 2 mg VIAL 1 ml ONE (04:18)
[2024-05-01] MEDS: Pantoprazole VIAL 40 MG VIAL IV SCH (04:26)
[2024-05-01] MEDS ORDERED: Lorazepam PYXIS KEY PRN ×2 (04:43→10:03)
[2024-05-01 07:09] LABS: ABS Eosinophils 0.1 10^3/uL (0.0-0.5); ABS Lymphocytes 1.9 10^3/uL (1.0-4.8); ABS Monocytes 1.1 10^3/uL (0.0-1.1); ABS Neutrophils 4.6 10^3/uL (1.5-7.6); ABS Nucleated RBC 0.01 10^3/ul; Anion Gap 7 mmol/L (2-16); Blood Urea Nitrogen 52 mg/dL (6-24); CO2 Carbon Dioxide 26 mmol/L (22-32); Calcium 8.4 mg/dL (8.6-10.3); Chloride 98 mmol/L (101-111); Creatinine, Serum 1.63 mg/dL (0.67-1.17); Eosinophil % 1.2 %; Glucose 85 mg/dL (70-100); Hematocrit 46.7 % (38-53); Hemoglobin 16.1 g/dL (13.2-16.3); Lymphocyte % 24.6 %; Magnesium 2.7 mg/dL (1.9-2.7); Mean Corpuscular Hemoglobin 30.9 pg (27-33); Mean Corpuscular Hgb Conc 34.5 g/dL (31-36); Mean Corpuscular Volume 89.6 fL (80-97); Mean Platelet Volume 7.9 fL (7.5-11.2); Nucleated Red Blood Cells % 0.1 %/100WBC (0.0-0.8); Platelet Count 285 10^3/uL (150-450); Red Blood Count 5.21 10^6/uL (4.06-5.63); Red Cell Distribution Width 14.2 % (12-17); Sodium 131 mmol/L (135-145); White Blood Count 7.8 10^3/uL (3.6-10.2); eGFR CKD-EPI 50.7 (>60)
[2024-05-01 08:16] LABS: Potassium, Whole Blood 4.1 mmol/L (3.4-4.5)
[2024-05-01 11:34] VITALS: BP 140/94
[2024-05-03 18:20] LABS: Hepatitis C Genotype 1 (Undetected)
== END 2024-05-01 12:40 | disposition left against medical advice (07) ==
LOC: ED 10:51 → EDHOLD 10:51 → MEDTELE 15:09
PROVIDERS: ADMIT Internal Medicine; ATTEND Internal Medicine